=== PATIENT | female | born 1995 | race Native Hawaiian/Other Pacific Islander ===

== ENCOUNTER 2017-11-26 03:12 | Emergency (ER) | payer SELFPAY ==
[~2017-11-26] VITALS: Ht 157.5 cm; Wt 48.0 kg
[2017-11-26 03:16] VITALS: BP 92/63; PULSE 87; RESP 14; TEMP 98.8; O2SAT 100
[2017-11-26] MEDS ORDERED: SODIUM CHLOR 0.9% 1000 ML INJ 1,000 ML IV SCH (03:24)
--- NOTE | 2017-11-26 03:26 | PD ---
HPI Chief Complaint: Alcohol/Drug Intoxication Time Seen by Provider: 03:23 Travel History International Travel<30 days: No Contact w/Intl Traveler<30days: No Traveled to known affect area: No History of Present Illness HPI 22-year-old female patient presents to the ER today brought in by EMS, apparently friends state that she has been drinking a lot today and was laying on the couch, vomiting. She currently is fairly lethargic, not answering many questions. Modifying Factors: None Associated Signs & Symptoms: Alcohol use, vomiting, disoriented Risk Factors: None PFSH Past Medical History Medical History: Denies Significant Hx Immunizations Current: Yes ?: Not Past Surgical History Surgical History: No Previous Surgery Social History Alcohol Use: Yes Tobacco Use: No Substance Use: No Allergies-Medications (Allergen,Severity, Reaction): Coded Allergies: No Known Allergies (Unverified , 11/26/17) Reported Meds & Prescriptions Reported Meds & Active Scripts Active No Active Prescriptions or Reported Medications Review of Systems ROS Limitations: Altered Mental Status Physical Exam Narrative GENERAL: Well-developed young female patient currently in moderate distress. Awake and oriented 3. SKIN: Focused skin assessment warm/dry. HEAD: Atraumatic. Normocephalic. EYES: Pupils equal and round. No scleral icterus. No injection or drainage. ENT: No nasal bleeding or discharge. Mucous membranes pink and moist. NECK: Trachea midline. No JVD. CARDIOVASCULAR: Regular rate and rhythm. No murmur appreciated. RESPIRATORY: No accessory muscle use. Clear to auscultation. Breath sounds equal bilaterally. GASTROINTESTINAL: Abdomen soft, non-tender, nondistended. Hepatic and splenic margins not palpable. MUSCULOSKELETAL: No obvious deformities. No clubbing. No cyanosis. No edema. NEUROLOGICAL: Awake and alert. No obvious cranial nerve deficits. Motor grossly within normal limits. Normal speech. PSYCHIATRIC: Appropriate mood and affect; insight and judgment normal. Data Data Last Documented VS Vital Signs Date Time Temp Pulse Resp B/P (MAP) Pulse Ox O2 Delivery O2 Flow Rate FiO2 11/26/17 05:09 90 14 94/58 (70) 100 11/26/17 03:16 98.8 Orders Orders Complete Blood Count With Diff (11/26/17 03:24) Comprehensive Metabolic Panel (11/26/17 03:24) Blood Glucose (11/26/17 03:24) Ecg Monitoring (11/26/17 03:24) Iv Access Insert/Monitor (11/26/17 03:24) Oximetry (11/26/17 03:24) Sodium Chloride 0.9% Flush (Ns Flush) (11/26/17 03:30) Sodium Chlor 0.9% 1000 Ml Inj (Ns 1000 M (11/26/17 03:24) Drug Screen, Random Urine (11/26/17 03:24) Alcohol (Ethanol) (11/26/17 03:24) Ed Urine Pregnancytest Poc (11/26/17 03:24) Labs Laboratory Tests Test 11/26/17 03:45 White Blood Count 11.2 TH/MM3 Red Blood Count 3.64 MIL/MM3 Hemoglobin 10.6 GM/DL Hematocrit 31.6 % Mean Corpuscular Volume 86.8 FL Mean Corpuscular Hemoglobin 29.0 PG Mean Corpuscular Hemoglobin Concent 33.4 % Red Cell Distribution Width 13.3 % Platelet Count 148 TH/MM3 Mean Platelet Volume 10.5 FL Neutrophils (%) (Auto) 83.1 % Lymphocytes (%) (Auto) 9.4 % Monocytes (%) (Auto) 7.2 % Eosinophils (%) (Auto) 0.1 % Basophils (%) (Auto) 0.2 % Neutrophils # (Auto) 9.3 TH/MM3 Lymphocytes # (Auto) 1.1 TH/MM3 Monocytes # (Auto) 0.8 TH/MM3 Eosinophils # (Auto) 0.0 TH/MM3 Basophils # (Auto) 0.0 TH/MM3 CBC Comment DIFF FINAL Differential Comment Blood Urea Nitrogen 10 MG/DL Creatinine 0.62 MG/DL Random Glucose 88 MG/DL Total Protein 7.9 GM/DL Albumin 3.9 GM/DL Calcium Level 8.2 MG/DL Alkaline Phosphatase 53 U/L Aspartate Amino Transf (AST/SGOT) 12 U/L Alanine Aminotransferase (ALT/SGPT) 14 U/L Total Bilirubin 0.2 MG/DL Sodium Level 140 MEQ/L Potassium Level 3.9 MEQ/L Chloride Level 110 MEQ/L Carbon Dioxide Level 19.8 MEQ/L Anion Gap 10 MEQ/L Estimat Glomerular Filtration Rate 123 ML/MIN Ethyl Alcohol Level 204 MG/DL MDM Medical Decision Making Medical Screen Exam Complete: Yes Emergency Medical Condition: Yes Medical Record Reviewed: Yes Interpretation(s) Laboratory Tests Test 11/26/17 03:45 White Blood Count 11.2 TH/MM3 (4.0-11.0) Red Blood Count 3.64 MIL/MM3 (4.00-5.30) Hemoglobin 10.6 GM/DL (11.6-15.3) Hematocrit 31.6 % (35.0-46.0) Platelet Count 148 TH/MM3 (150-450) Neutrophils (%) (Auto) 83.1 % (16.0-70.0) Neutrophils # (Auto) 9.3 TH/MM3 (1.8-7.7) Calcium Level 8.2 MG/DL (8.5-10.1) Aspartate Amino Transf (AST/SGOT) 12 U/L (16-38) Chloride Level 110 MEQ/L (98-107) Carbon Dioxide Level 19.8 MEQ/L (21.0-32.0) Ethyl Alcohol Level 204 MG/DL (0-5) Differential Diagnosis Altered mental status, intoxication Narrative Course Lab work shows that she is quite intoxicated. At this point, plan would be to let her sleep but often release months sober. Patient was observed at 6:30 AM, awake, alert, ambulatory in the ER. She denies any other injuries. Her sister is here to pick her up. At this point, the patient is released with sister. Return for new issues as needed. Diagnosis Primary Impression: Alcohol intoxication Scripts No Active Prescriptions or Reported Meds Disposition: 01 DISCHARGE HOME Condition: Stable Neeta Mercado MD Nov 26, 2017 03:26
[2017-11-26] MEDS ORDERED: SODIUM CHLORIDE 0.9% FLUSH 10 ML FLUSH IV FLUSH PRN (03:30)
[2017-11-26 04:27] LABS: AUTOMATED NEUTROPHIL # 9.3 TH/MM3 (1.8-7.7); BASOPHIL % 0.2 % (0.0-2.0); EOSINOPHIL % 0.1 % (0.0-4.0); HEMATOCRIT 31.6 % (35.0-46.0); HEMOGLOBIN 10.6 GM/DL (11.6-15.3); LYMPH % 9.4 % (9.0-44.0); LYMPHOCYTE # 1.1 TH/MM3 (1.0-4.8); MEAN CELL VOLUME 86.8 FL (80.0-100.0); MEAN CORPUSCULAR HGB CONC 33.4 % (32.0-36.0); MEAN PLATELET VOLUME 10.5 FL (7.0-11.0); MONO % 7.2 % (0.0-8.0); MONOCYTE # 0.8 TH/MM3 (0-0.9); NEUT % 83.1 % (16.0-70.0); PLATELET COUNT 148 TH/MM3 (150-450); RED BLOOD COUNT 3.64 MIL/MM3 (4.00-5.30); RED CELL DISTRIBUTION WIDTH 13.3 % (11.6-17.2); WHITE BLOOD COUNT 11.2 TH/MM3 (4.0-11.0)
[2017-11-26 04:35] LABS: ALBUMIN 3.9 GM/DL (3.4-5.0); ALT (GPT) 14 U/L (9-42); AST (GOT) 12 U/L (16-38); BICARBONATE 19.8 MEQ/L (21.0-32.0); BLOOD UREA NITROGEN 10 MG/DL (7-18); CALCIUM 8.2 MG/DL (8.5-10.1); CHLORIDE 110 MEQ/L (98-107); CREATININE 0.62 MG/DL (0.50-1.00); GLOMERULAR FILTRATION RATE 123 ML/MIN (>89); GLUCOSE,RANDOM 88 MG/DL (74-106); SODIUM (NA) 140 MEQ/L (136-145)
[2017-11-26 04:38] LABS: ALKALINE PHOSPHATASE 53 U/L (45-117); TOTAL BILIRUBIN ADULT 0.2 MG/DL (0.2-1.0); TOTAL PROTEIN 7.9 GM/DL (6.4-8.2)
[2017-11-26 05:09] VITALS: BP 94/58; PULSE 90; RESP 14; O2SAT 100
[2017-11-26 06:47] VITALS: BP 110/60
== END 2017-11-26 06:50 | disposition home or self-care (01) ==
LOC: NEPC 03:12
DX: F10.129 Alcohol abuse with intoxication, unspecified (principal); Y90.7 Blood alcohol level of 200-239 mg/100 ml
CPT/HCPCS: 80053; 80307; 85025; 96360; 99284; J7030